=== PATIENT | male | born 1955 | race Hispanic/Latino ===

== ENCOUNTER 2018-10-25 21:51 | Emergency (ER) | payer MEDICAID, OTHER ==
[2018-10-25] MEDS ORDERED: OCTYL 2-CYANOACRYLATE 1 EACH TP ONE (22:37)
[2018-10-25] MEDS ORDERED: ACETAMINOPHEN EXTRA STRENGTH 500 MG TABLET ONE (22:52)
== END 2018-10-25 23:01 | disposition home or self-care (01) ==
LOC: EDH 21:51
DX: S01.312A Laceration without foreign body of left ear, initial encounter (principal); G89.29 Other chronic pain; M54.5 Low back pain; Z88.0 Allergy status to penicillin; X58.XXXA Exposure to other specified factors, initial encounter; Y93.89 Activity, other specified; Y92.89 Other specified places as the place of occurrence of the external cause; Y99.8 Other external cause status
CPT/HCPCS: 12011